=== PATIENT | male | born 1990 | race Caucasian/White ===

== ENCOUNTER 2019-07-25 10:08 | Outpatient (CLI) | payer OTHER, SELFPAY ==
--- NOTE | ~2019-07-25 | XR_ITS ---
XR knee RT 2V DATE: 07/25/2019 10:32 INDICATION: Unknown injury. Anteromedial right knee pain TECHNIQUE: AP and lateral views COMPARISON: None FINDINGS: No fracture or dislocation or joint effusion. No periosteal reaction or bone destruction, r adiopaque intra-articular loose body or chondral calcinosis. Joint spaces are well preserved. IMPRESSION: Negative Reviewed, dictated and finalized at location A. IMPRESSION: Negative
== END 2019-07-25 10:09 | disposition home or self-care (01) ==
LOC: ANHIMG 10:18
PROVIDERS: PCP Family Medicine; Visit Provider Nurse Practitioner Family
DX: M25.569 Pain in unspecified knee (principal)
CPT/HCPCS: 73560

== ENCOUNTER 2022-08-15 09:55 | Outpatient (CLI) | payer OTHER, SELFPAY ==
[2022-08-27 13:52] LABS: SMA 2.0 RISK VARIANT NOT DETECTED
[2022-08-29 15:29] LABS: SMA Results Received Yes
== END 2022-08-15 09:56 | disposition home or self-care (01) ==
LOC: ANHLAB 09:58
PROVIDERS: PCP Family Medicine; Visit Provider Student in an Organized Health Care Education/Training Program
DX: Z14.8 Genetic carrier of other disease (principal)
CPT/HCPCS: 36415; 81329

== ENCOUNTER 2025-01-03 14:14 | Outpatient (CLI) | payer OTHER, SELFPAY ==
--- NOTE | ~2025-01-03 | XR_ITS ---
Examination: XR ankle LT min 3V Clinical History: Pain in left ankle and joints of left foot, 1 month pain, Comparison: None Technique: 4 views left ankle Findings/impression: 1. No fracture or dislocation left ankle. 2. Tiny exostosis medial talus below level of ankle joint. Reviewed, dictated and finalized at location R.
== END 2025-01-03 14:15 | disposition home or self-care (01) ==
LOC: GOSHIMG 14:15
PROVIDERS: PCP Nurse Practitioner Adult Health; Visit Provider Nurse Practitioner Adult Health
DX: M89.8X7 Other specified disorders of bone, ankle and foot (principal); M25.572 Pain in left ankle and joints of left foot; M76.60 Achilles tendinitis, unspecified leg
CPT/HCPCS: 73610